=== PATIENT | female | born 1935 | race Caucasian/White ===

== ENCOUNTER 2016-09-08 18:11 | Emergency (ER) | payer MEDICARE, OTHER ==
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
[2016-09-08 18:28] LABS: BASOPHIL % 0.5 % (0.0-0.4); Granulocytes % 64.9 % (36.0-66.0); Lymphocytes % 23.2 % (24.0-44.0); Mean Cell Volume 97.5 fl (78-100); Mean Corpuscular Hemoglobin 31.2 pg (26-32); Mean Platelet Volume 10.8 fl (6-9.5); Monocytes % 8.4 % (0.0-12.0); Platelet Count 284 K/mm3 (150-450); Red Blood Count 4.77 M/mm3 (4.1-5.4); Red Cell Distribution Width 13.3 % (11.5-14.0); White Blood Count 10.2 K/mm3 (4.0-10.5)
[2016-09-08] MEDS ORDERED: Sodium Chloride 0.9% 1000 ML 1,000 ML IV SCH (18:30)
[2016-09-08 18:39] VITALS: O2SAT 98
[2016-09-08] MEDS ORDERED: MORPHINE SULFATE 2 MG INJ IV ONE (18:48)
[2016-09-08] MEDS ORDERED: Zofran 4 MG/2 ML VIAL IV ONE (18:48)
[2016-09-08 18:50] LABS: ALBUMIN 3.9 g/dL (3.4-5.0); ANION GAP 16.4 MEQ/L (5-15); BILIRUBIN,TOTAL 0.3 mg/dL (0.2-1.0); Carbon Dioxide 22.8 mEq/L (21-32); Potassium 3.7 mEq/L (3.5-5.1)
[2016-09-08] MEDS ORDERED: Zofran 4 MG/2 ML VIAL ONE (18:51)
[2016-09-08] MEDS ORDERED: MORPHINE SULFATE 2 MG INJ ONE (18:51)
[2016-09-08 18:55] LABS: INR 0.97 (0.8-3.0)
[2016-09-08] MEDS ORDERED: Sodium Chloride 0.9% 1000 ML 1,000 ML ONE (18:56)
[2016-09-08 18:58] LABS: PTT 27.2 SECONDS (25.3-37.0)
[2016-09-08 19:23] LABS: Bacteria FEW /HPF (NEGATIVE); COMPLETE URINE MICROSCOPIC? YES; Collection Type CLEAN CATCH; Epithelial Cells MODERATE /HPF (FEW); Mucus SLIGHT /HPF (NEGATIVE); WBC 0-2 /HPF (0-5)
[2016-09-08 19:24] LABS: ADD URINE CULTURE? NO (NO)
[2016-09-08] MEDS ORDERED: TYLENOL 325 MG PO ONE (20:25)
[2016-09-08] MEDS ORDERED: TYLENOL 325 MG ONE (20:42)
[2016-09-08 21:01] VITALS: BP 175/86; PULSE 89
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
== END 2016-09-08 21:00 | disposition left against medical advice (07) ==
LOC: ED 18:11
DX: S20.219A Contusion of unspecified front wall of thorax, initial encounter (principal); R07.89 Other chest pain; E11.9 Type 2 diabetes mellitus without complications; E78.00 Pure hypercholesterolemia, unspecified; G45.9 Transient cerebral ischemic attack, unspecified
CPT/HCPCS: 36000; 36415; 71250; 80053; 81000; 84484; 85025; 85610; 85730; 93005; 96360; 96361; 96374; 96375; 99284; J2270; J2405; A9270-GY